=== PATIENT | female | born 1940 | race Two or more races ===

== ENCOUNTER 2025-08-08 15:30 | Inpatient (IN) | payer MEDICAID, MEDICARE, OTHER ==
[~2025-08-08] VITALS: Ht 157.5 cm; Wt 76.5 kg
[2025-08-08] VITALS (27 sets, daily range): BP systolic 93–133; BP diastolic 29–53; PULSE 56–100; RESP 11–22; TEMP 97.5–97.7; O2SAT 93–99
--- NOTE | 2025-08-08 15:36 | DVHINCON2 ---
Date Seen: Aug 08, 2025 Referring Physician MD Roslyn Reason for Consultation STEMI History of Present Illness This is an 85-year-old female who presented to the emergency room via EMS with a chief complaint of chest pain since 15 minutes prior to calling 911. Describes her chest pain as retrosternal, radiating to the right upper extremity, pressure/tightness like, and associated with tremors. The patient was medicated at home with NTG SL 0.4 mg x 2 prior to EMS arrival. EN route to the hospital she was medicated with ASA 325 mg p.o. x1 and IVF x 100 mLs. She underwent a 12 lead electrocardiogram revealing an inferoposterior acute myocardial infarction for which code STEMI was activated. Blood work is pending at this time. Significant medical history includes coronary artery disease status post PCI with stent placement in 2023 with current dual antiplatelet therapy with Plavix and high-intensity statin, history of cerebrovascular accidents x2 without deficits, hypertension, dyslipidemia, svw-xypxwsx-fuiyrqcqd diabetes mellitus, and iron deficiency anemia. Past Medical History Past medical history reviewed. No other significant than mentioned above. Past Surgical History PCI with a stent placement of unknown vessel, 2023 Family History Family history reviewed. Social History Denies the use of illicit drugs, alcohol, or tobacco use. Allergies: Coded Allergies: Morphine (Unverified Allergy, Unknown, 08/08/25) Home Meds Home medications reviewed. Review of Systems Constitutional: No symptom reported Ears, Nose, & Throat: No symptom reported Eyes: No symptom reported Neurological: No symptoms reported Pulmonary/Respiratory: No symptom reported Cardiovascular: Chest pain Gastrointestinal: No symptom reported Genitourinary: No symptom reported Musculoskeletal: No symptom reported Skin: No symptom reported Psychiatric: No symptom reported Endocrine: No symptom reported Hemotologic/Lymphatic: No symptom reported Physical Exam General Appearance: Cooperative. Moderate to severe acute distress Head Exam: Normal inspection Neck Exam: Normal inspection. Non-tender. Normal alignment Pulmonary/Respiratory: Chest non-tender. Clear bilateral breath sounds Cardiovascular/Chest: Regular rate and rhythm. S1, S2. Sinus rhythm with ST- elevation to inferoposterior leads. No murmurs. No JVD. Peripheral Pulses: 2+ Radial (R). 2+ Radial (L). 2+ Pedal (R). 2+ Pedal (L) Abdominal Exam: Normal bowel sounds. Ankle Exam: Negative ankle edema Lower extremities: Negative lower extremity edema Neuro/Mental Status: A&O x4. Coherent Thoughts/Psych: Normal thought pattern. Anxious Appearance: Sjttbhmg-al-kxhcrw acute distress Skin Exam: Normal inspection. Pale color. Warm. Dry Assessment ST-elevation myocardial infarction Acute inferoposterior myocardial infarction Rule out structural heart disease Hypertension Dyslipidemia Hx of CVAs x2 Tzb-fgayncu-gyytkekxm diabetes mellitus Iron deficiency anemia Plan/Recommendation (Dr. Garcia) Code STEMI activated. The patient has been scheduled for emergent cardiac catheterization and coronary angiogram at first available. All risks and benefits of the procedure were discussed with the patient who agrees to proceed with intervention. All questions answered. Patient unable to sign consents secondary to tremors. There was no family at bedside or in lobby area at time of assessment. Consents has been signed by two providers. The patient has been loaded on ASA 325 mg p.o. Heparin bolus held per Dr. Garcia's request. Blood work pending at this time. We will continue further cardiac evaluation with a transthoracic echocardiogram to rule out structural heart disease. Further orders per clinical course. Thank you for allowing us to participate in this patient's care. Please call if you have any questions or concerns. Critical care time: 30 min. This medical document was created using an electronic medical record system with voice recognition software and computerized dictation system. Although this document has been carefully reviewed, there might still be some phonetic and typographical errors. Occas ional wrong-word or ``sound-alike substitutions may have occurred due to the inherent limitations of voice recognition software. These areas are purely typographical due to imperfections of the software programs and do not reflect any compromise in the patient's medical care. Please read the chart carefully and recognize, using context, where these substitutions have occurred. Plan discussed with: Patient, Other NYHA Physical activity limitations: NA Date of Service: Aug 08, 2025 Billing Provider: JAMI SMITH Cardiology Common Codes: [id number] CARE 30-74 MIN JAMI SMITH Aug 08, 2025 15:36
[2025-08-08] MEDS: HEPARIN IN NS 1000Units/500mL 1,500 ML ONE (15:38)
[2025-08-08] MEDS: VERAPAMIL 2.5MG/ML INJ 2ML VIAL IV ONE (15:40)
[2025-08-08] MEDS: ANGIOMAX 250 MG VIAL IV ONE (15:40)
[2025-08-08] MEDS: fentaNYL CITRATE 100 MCG/2 ML VL ONE (15:40)
[2025-08-08] MEDS: MIDAZOLAM HCL 2MG/2ML 2ml VIAL (1mg/ml) ONE (15:41)
[2025-08-08] MEDS: LIDOCAINE 2%HCL (LOCAL ANESTH.) INJ 20ML MDV ONE (15:41)
[2025-08-08] MEDS: SODIUM CHL 0.9% 50 ML ONE (15:41)
[2025-08-08] MEDS ORDERED: MORPHINE SULFATE INJ 2 MG/ml SYRG IV ONE (15:45)
[2025-08-08] MEDS ORDERED: ONDANSETRON HCL 4 MG/2 ML VIAL IV ONE (15:45)
--- NOTE | 2025-08-08 15:45 | ED.PDOC ---
History of Present Illness HPI Comments This is an 85-year-old female who comes in with chief complaint of chest pain starting approximately 15 minutes prior to arrival. The patient was at home when the chest pain started. The pain is pressure-like and radiates towards the back. The patient also states that the pain radiated towards the right arm. There has been no nausea, vomiting or diarrhea. There has been no fever or chills. 911 was called and the patient was transported to our facility. EN route, the patient's pain was a 10/10. The patient was given aspirin p.o.. The patient also took nitroglycerin x2 prior to arrival at home. The patient was somewhat hypotensive so was given normal saline at a 500 cc bolus. EN route, the patient had an oxygen saturation of 96% but was placed on oxygen at 2 L nasal cannula. Upon arrival, the patient had an EKG already done in the field which indicated that it was a STEMI. An EKG was repeated upon arrival and we confirmed that has a STEMI. The patient was being evaluated by Seema Robertson NP immediately upon arrival. We did send the EKG to Dr. Garcia and was also confirmed. Time Seen by MD: 15:33 Reviewed Notes: Nurses Notes, General Office Clerk Notes, Medications, Allergies (Allergies to morphine) Allergies: Coded Allergies: Morphine (Unverified Allergy, Unknown, 08/08/25) Information Source: Patient, Emergency Med Personnel Mode of Arrival: EMS Severity: Severe Timing: Minutes Duration: Since onset Prehospital treatment: 12 Lead EKG, ASA, Certified Recreational Therapist, IVF, NTG, Oxygen Location: Substernal chest pain that radiates to the right arm and to the back Associated signs and symptoms Associated mild shortness for breath but no nausea or vomiting Past Medical History PAST MEDICAL HISTORY: CVA, DM, HTN, CO Surgical History: Appendectomy, Hysterectomy, PTCA [employer]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 History: No Pertinent OR[employer]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 History Family History Family History: Reviewed,noncontributory to illness Social History Smoker: Non-Smoker Alcohol: Denies ETOH Use Drugs: Denies Drug Use Lives In: Home Constitutional: denies: chills, diaphoresis, fatigue, fever, malaise, sweats, weakness, others EENTM: denies: blurred vision, double vision, ear bleeding, ear discharge, ear drainage, ear pain, ear ringing, eye pain, eye redness, hearing loss, mouth pain, mouth swelling, nasal discharge, nose bleeding, nose congestion, nose pain, photophobia, tearing, throat pain, throat swelling, voice changes, others Respiratory: reports: shortness of breath; denies: cough, hemoptysis, orthopnea, SOB at rest, SOB with excertion, stridor, wheezing, others Cardiovascular: reports: chest pain; denies: dizzy spells, diaphoresis, Dyspnea on exertion, edema, irregular heart beat, left arm pain, lightheadedness, palpitations, PND, syncope, others Gastrointestinal: denies: abdomen distended, abdominal pain, blood streaked bowels, constipated, diarrhea, dysphagia, difficulty swallowing, hematemesis, melena, nausea, poor appetite, poor fluid intake, rectal bleeding, rectal pain, vomiting, others Genitourinary: denies: abnormal vagina bleeding, burning, dyspareunia, dysuria, flank pain, frequency, hematuria, incontinence, pain, , vagina disch arge, urgency, others Neurological: denies: dizziness, fainting, headache, left sided numbness, left sided weakness, numbness, paresthesia, pre-existing deficit, right sided numbness, right sided weakness, seizure, speech problems, tingling, tremors, weakness, others Musculoskeletal: denies: back pain, gout, joint pain, joint swelling, muscle pain, muscle stiffness, neck pain, others Integumetry: denies: bruises, change in color, change in hair/nails, dryness, laceration, lesions, lumps, rash, wounds, others Allergic/Immunocompromised: denies: Difficulty Healing, Frequent Infections, Hives, Itching, others Hematologic/Lymphatic: denies: anemia, blood clots, easy bleeding, easy bruising, swollen glands, others Endocrine: denies: excessive hunger, excessive sweating, excessive thirst, excessive urination, flushing, intolerance to cold, intolerance to heat, unexplained weight gain, unexplained weight loss, others Psychiatric: denies: anxiety, bipolar disorder, depression, hopeless, panic disorder, schizophrenia, sleepless, suicidal, others Physical Exam General Appearance: Severe Distress HEENT: Pale Conjuntivae (L), Pale Conjuntivae (R), Pharynx Normal, TMs Normal Neck: Full Range of Motion, Non-Tender, Normal, Normal Inspection Respiratory: Chest Non-Tender, Lungs Clear, No Accessory Muscle Use, No Respiratory Distress, Normal Breath Sounds Cardiovascular: No Edema, No JVD, No Murmur, No Gallop, Normal Peripheral Pulses, Regular Rate/Rhythm Breast Exam: Deferred Gastrointestinal: No Organomegaly, Non Tender, No Pulsatile Mass, Normal Bowel Sounds, Soft Genitalia: Deferred Pelvic: Deferred Rectal: Deferred Extremities: No calf tenderness, Normal capillary refill, No pedal edema Musculoskeletal : Apperance: Normal Neurologic: Alert, call or contact centre team leader II-XII nml as Tested, Motor Weakness, Normal Affect, Normal Mood, No Sensory Deficits Cerebellar Function: Normal Reflexes: Normal Skin: Dry, Normal Color, Warm Lymphatic: No Adenopathy Was a procedure done? Was a procedure done?: No EKG EKG : Pulse Rate (adult): 63 [place]: Normal Cardiac Rhythm: NSR ST: Nonsp (ST-elevation in the inferior and anterior leads) Differential Dx Considerations may include: ACS, CO, generalized weakness X-Ray, Labs, Meds, VS IV Hep-Lock was established The patient is allergic to morphine so we did not give any pain medication. We did speak with the pond tender and he does not want any heparin given at this time. Images Reviewed?: Images reviewed and evaluated by me Time of 1ST Reevaluation: 15:44 Reevaluation 1ST: Unchanged Patient Education/Counseling: Diagnosis, Treatment, Prognosis Family Education/Counseling: No Family Present SEPSIS Sepsis Screen Physician Orders Complete Blood Count (08/08/25 15:33) Comprehensive Metabolic Panel (08/08/25 15:33) PTPTT (08/08/25 15:33) Magnesium (08/08/25 15:33) Chest Portable (08/08/25 15:33) Certified Recreational Therapist (08/08/25 15:33) Blood Pressure (08/08/25 15:33) Pulse Oximetry (08/08/25 15:33) Heplock Iv (08/08/25 15:33) Heplock Iv (08/08/25 15:33) Oxygen Per Hour (08/08/25 15:33) Troponin-I Hs (08/08/25 15:33) Electrocardigram (08/08/25 15:33) Troponin-I Hs (08/08/25 16:33) Troponin-I Hs (08/08/25 18:33) Electrocardigram (08/08/25 16:33) Electrocardigram (08/08/25 18:33) Morphine Sulfate Injection (08/08/25 15:45) Ondansetron Hcl (Zofran) (08/08/25 15:45) Departure 1 Departure Time of Disposition: 15:44 Impression: Primary Impression: STEMI (ST elevation myocardial infarction) Qualified Codes: I21.3 - ST elevation (STEMI) myocardial infarction of unspecified site Disposition: 09 ADMITTED INPATIENT Admit to: ICU Condition: Fair Critical Care Note Critical Care Time?: Yes (45 min-critical care time only) Stability Stability form required: Yes Unstable for transfer: ICU, CCU, PCU, JAYDEN (Intensive VS monitoring), ED Physician Assesment (Clinical assesment) Heart Score Heart Score: Heart Score Response (Comments) Value History Highly Suspicious [address]-Deviation 2 Age >65 2 Risk Factors >3 or Hx ASHD 2 Troponin N/A 0 Total 8 LILLIAM CATALAN MD Aug 08, 2025 15:45
[2025-08-08 15:48] LABS: Hematocrit 33.3 % (36.0-46.0); Hemoglobin 10.3 g/dL (12.2-16.2); Mean Corpuscular Hemoglobin 22.1 pg (28.0-32.0); Mean Corpuscular Volume 71.5 fL (80.0-100.0); Nucleated Red Blood Cells % 0.1 %
[2025-08-08] MEDS: ATROPINE SULF 1 MG/10ml SYR ONE ×2 (15:50→16:37)
[2025-08-08] MEDS ORDERED: MORPHINE SULFATE INJ 2 MG/ml SYRG IV PRN (16:00)
[2025-08-08] MEDS ORDERED: NITROGLYCERIN 0.4 MG SL TAB SL PRN (16:00)
--- NOTE | 2025-08-08 16:02 | DVH ---
CHEST RADIOGRAPH Indication: cp Technique: Single frontal view of the chest was obtained Comparison: None FINDINGS: Lines and Tubes: None Lungs: No focal consolidation. Bronchovascular crowding due to low lung volumes. Pleura: No effusion. No pneumothorax. Cardiomediastinal contours: Unremarkable Bones: No acute osseous abnormality. IMPRESSION: No acute cardiopulmonary disease.
[2025-08-08] MEDS: HEPARIN SODIUM (PORCINE) 5000 UNITS/ML 1ML VIAL ONE (16:04)
[2025-08-08 16:06] LABS: INR 0.97 (0.9-1.15); Partial Thromboplastin Time 23.8 SEC (24.5-34.5); Prothrombin Time 10.3 sec (9.3-11.8)
[2025-08-08 16:09] LABS: Alanine Aminotransferase 13 U/L (7-40); Albumin 4.1 g/dL (3.2-4.8); Alkaline Phosphatase 64 U/L (46-116); Anion Gap 14 (5-15); BUN/Creatinine Ratio 26.3 (10.0-20.0); Calcium 9.2 mg/dL (8.7-10.4); Carbon Dioxide 22 mmol/L (20-31); Magnesium 2.0 mg/dL (1.6-2.6); Potassium 3.8 mmol/L (3.5-5.1); Sodium 144 mmol/L (136-145); Total Protein 6.5 g/dL (5.7-8.2)
[2025-08-08 16:12] LABS: Bilirubin, Total 0.3 mg/dL (0.2-1.0); Blood Urea Nitrogen 26 mg/dL (9-23); Chloride 108 mmol/L (98-107); Glucose 134 mg/dL (74-106)
[2025-08-08] MEDS ORDERED: ACETAMINOPHEN 325 MG TAB PO PRN (16:15)
[2025-08-08] MEDS ORDERED: DEXTROSE (50%) 50ML SYRG IV PRN (16:15)
--- NOTE | 2025-08-08 16:18 | DVHHP2 ---
History of Present Illness Reason for Visit: Chest pain History of Present Illness 85-year-old female presents for evaluation of chest pain. Patient presents with a one day history of pressure-like chest pain that radiates to her back with associated shortness for breath. No cough or fever. No nausea or vomiting. Patient was also hypotensive on arrival to the emergency department. Past Medical History Hypertension, mi, diabetes mellitus, CVA Past Surgical History hysterectomy, PTCA, appendectomy Family History Noncontributory Smoke: No ALCOHOL: none Drugs: None Lives: with Family Review of Systems Review of Systems Review of systems are currently negative otherwise addressed in HPI. Allergies: Coded Allergies: Morphine (Unverified Allergy, Unknown, 08/08/25) Medications Current Medications Medications Dose Ordered Sig/Acacia Route Start Time Stop Time Status Last Admin Dose Admin Aspirin 81 mg DAILY PO 08/09/25 10:00 Clopidogrel Bisulfate 75 mg DAILY PO 08/09/25 10:00 Atorvastatin Calcium 80 mg HS PO 08/08/25 22:00 Nitroglycerin 0.4 mg Q5MINP PRN SL 08/08/25 16:00 Morphine Sulfate 2 mg Q30M PRN IV 08/08/25 16:00 UNV Exam Vital Signs Vital Signs Date Time Temp Pulse Resp B/P (MAP) Pulse Ox O2 Delivery O2 Flow Rate FiO2 08/08/25 15:45 63 08/08/25 15:37 97.7 30 90/53 97 97.7 Exam Gen: 85-year-old female in mild distress. Skin: Warm, dry, normal color and texture, no rash. HEENT: Normocephalic atraumatic, mucous membranes moist and pink. Neck: Cervical and supraclavicular nodes normal without enlargement, trachea is midline, thyroid gland is normal without masses. Pulmonary: Clear to auscultation and percussion bilaterally. Cardiac: Regular rate and rhythm. No murmur Abdomen: Soft, nontender, nondistended, bowel sounds present all 4 quadrants, no guarding, no rigidity, no organomegaly. Extremities: No cyanosis, clubbing, no edema Neuro: Cranial nerves II through XII grossly intact, normal affect and speech, no focal motor deficits. Labs/Xrays Labs Test 08/08/25 15:31 Range/Units White Blood Count 9.8 4.4-10.8 10^3/uL Red Blood Count 4.66 4.0-5.20 10^6/uL Hemoglobin 10.3 L 12.2-16.2 g/dL Hematocrit 33.3 L 36.0-46.0 % Mean Corpuscular Volume 71.5 L 80.0-100.0 fL Mean Corpuscular Hemoglobin 22.1 L 28.0-32.0 pg Mean Corpuscular Hemoglobin Concent 30.9 L 32.0-36.0 g/dL Red Cell Distribution Width 14.8 H 11.8-14.3 % Platelet Count 308 140-450 10^3/uL Mean Platelet Volume 6.7 L 6.9-10.8 fL Neutrophils (%) (Auto) 41.0 37.0-80.0 % Lymphocytes (%) (Auto) 47.4 10.0-50.0 % Monocytes (%) (Auto) 7.8 0.0-12.0 % Eosinophils (%) (Auto) 3.0 0.0-7.0 % Basophils (%) (Auto) 0.8 0.0-2.0 % Neutrophils # (Auto) 4.0 1.6-8.6 10 ^3/uL Lymphocytes # (Auto) 4.7 0.4-5.4 10 ^3/uL Monocytes # (Auto) 0.8 0-1.3 10 ^3/uL Eosinophils # (Auto) 0.3 0-0.8 10 ^3/uL Basophils # (Auto) 0.1 0-0.2 10 ^3/uL Nucleated Red Blood Cells 0.1 % Prothrombin Time 10.3 9.3-11.8 sec Prothrombin Time INR 0.97 0.9-1.15 Activated Partial Thromboplast Time 23.8 L 24.5-34.5 SEC Sodium Level 144 136-145 mmol/L Potassium Level 3.8 3.5-5.1 mmol/L Chloride Level 108 H 98-107 mmol/L Carbon Dioxide Level 22 20-31 mmol/L Anion Gap 14 5-15 Blood Urea Nitrogen 26 H 9-23 mg/dL Creatinine 0.99 0.550-1.02 mg/dL Glomerular Filtration Rate Calc 56 >90 mL/min BUN/Creatinine Ratio 26.3 H 10.0-20.0 Serum Glucose 134 H 74-106 mg/dL Calcium Level 9.2 8.7-10.4 mg/dL Magnesium Level 2.0 1.6-2.6 mg/dL Total Bilirubin 0.3 0.2-1.0 mg/dL Aspartate Amino Transferase (AST) 15 13-40 U/L Alanine Aminotransferase (ALT) 13 7-40 U/L Alkaline Phosphatase 64 46-116 U/L Troponin I High Sensitivity 10 </=34 ng/L Total Protein 6.5 5.7-8.2 g/dL Albumin 4.1 3.2-4.8 g/dL SEPSIS Sepsis Screen Date sepsis recognized/suspect: Aug 08, 2025 Time Sepsis recognized/suspect: 1537 Recent Procedure: No On Antibiotic Therapy: No Respiratory Rate >20: No Heart Rate >90: No Temp<36 C (96.8 F) or >38.3 C: No SBP <90 or MAP <65 mmHG: No New Acute Mental Status Change: No Is the patient on CPAP, BIPAP,: No Physician Orders Chest Portable (08/08/25 15:33) Staff Consultant (08/08/25 15:33) Blood Pressure (08/08/25:33) Pulse Oximetry (08/08/25 15:33) Heplock Iv (08/08/25 15:33) Heplock Iv (08/08/25 15:33) Oxygen Per Hour (08/08/25 15:33) Electrocardigram (08/08/25 15:33) Troponin-I Hs (08/08/25 16:33) Troponin-I Hs (08/08/25 18:33) Electrocardigram (08/08/25 16:33) Electrocardigram (08/08/25 18:33) Npo Except For Medications (08/09/25 00:01) Obtain Consent For: (08/08/25 15:36) Hold Enoxaparin Day Of Procedu (08/09/25 00:01) D/C Tlc (08/08/25:36) Shave Both Groins (08/08/25:) Provide Education Materials (08/08/25 15:36) Cl Left Heart Cath (08/08/25 15:36) Comprehensive Metabolic Panel (08/10/25 04:00) Obtain Consent For Anesthesia (08/08/25 15:36) Cl Left Heart Cath (08/08/25 15:38) Hemoglobin A1c (08/08/25 15:49) Lipid Panel (08/08/25 15:49) B-Type Natriuretic Peptide (08/08/25 15:49) Thyroid Stimulating Hormone (08/08/25 15:49) Echo 2d Mode Cardiac Dop (08/08/25 15:49) Urinalysis (08/08/25 15:49) Aspirin Tablet (08/09/25 10:00) Clopidogrel Bisulfate (Plavix) (08/09/25 10:00) Atorvastatin (Lipitor) (08/08/25 22:00) Admit (08/08/25 15:55) Nitroglycerin Sublingual (Ntrostat Subli (08/08/25 16:00) Morphine Sulfate Injection (08/08/25 16:00) Stat Ekg For Chest Pain (08/08/25 15:55) Notify Md Of Changes From Base (08/08/25 15:55) Order Detailer For 24 Hours (08/08/25 15:55) Emergency Dysrhythmia Protocol (08/08/25 15:55) Rhythm Strips Once Every Shift (08/08/25 15:55) Oxygen By Nasal Cannula (08/08/25 15:55) Consistent Carb(Ccho)Diabetes (08/08/25 Dinner) Vital Signs Date Time Temp Pulse Resp B/P (MAP) Pulse Ox O2 Delivery O2 Flow Rate FiO2 08/08/25 15:45 63 08/08/25 15:37 97.7 64 30 90/53 97 97.7 08/08/25 15:31 63 Laboratory Tests Test 08/08/25 15:31 White Blood Count 9.8 10^3/uL (4.4-10.8) Assessment/Plan Assessment/Plan Assessment STEMI Diabetes mellitus Hypotension Plan Admit the patient to ICU to the hospitalist Patient undergoing heart catheterization Resume home medications Continue treatment per orders. Total critical care time excluding procedures performed this 50 minutes. Plan discussed with: Patient My Orders Orders - CAR MIRANDA Procedure Category Date Status Time Admit ADMIT 08/08/25 Transmitted 15:55 Nitroglycerin PHA 08/08/25 Logged Sublingual (Ntrostat 16:00 Morphine Sulfate PHA 08/08/25 Logged Injection 16:00 Stat Ekg For Chest DOLLY 08/08/25 In Process Pain 15:55 Notify Md Of Changes [facility] 08/08/25 In Process From Base 15:55 Order Detailer For [facility] 08/08/25 In Process 24 Hours 15:55 Emergency Dysrhythmia [facility] 08/08/25 In Process Protocol 15:55 Rhythm Strips Once [facility] 08/08/25 In Process Every Shift 15:55 Oxygen By Nasal RT 08/08/25 Transmitted Cannula 15:55 Consistent DIET 08/08/25 [facility]ified [facility]Diabetes Dinner Date of Service: Aug 08, 2025 Billing Provider: CAR MIRANDA Common Visit Codes: [id number] CARE 30-74 MIN CAR MIRANDA Aug 08, 2025 16:18
[2025-08-08] MEDS: NOREPINEPHRINE 8 MG/250ML KIT 0 ML IV ONE (16:22)
[2025-08-08 16:29] LABS: Triglycerides 135 mg/dL (< 150)
[2025-08-08] MEDS: NOREPINEPHRINE 8 MG/250ML KIT 250 ML IV SCH (16:30)
[2025-08-08 16:31] LABS: Cholesterol 125 mg/dL (< 200); HDL Cholesterol 44 mg/dL (40-59)
[2025-08-08] MEDS ORDERED: ATROPINE SULF 1 MG/10ml SYR IV PRN (16:45)
[2025-08-08] MEDS: IODIXANOL 320MG/ML 100ML BTL IV ONE (16:47)
[2025-08-08] MEDS: CLOPIDOGREL BISULFATE 75 MG TAB ONE (17:03)
--- NOTE | 2025-08-08 17:30 | DVHOP2 ---
Operative Report - 2 Report Details Date: 08/08/25 Preop Diagnosis: Acute ST-elevation myocardial infarction Postop Diagnosis: Successful aperture/PTCA and stenting of RCA Surgeon: Ashlyn Garcia MD Anesthesiologist: Conscious sedation Anesthesia: Mac, Local Consent: The patient was informed of the risks and benefits of the procedure. These include but are not limited to complications of anesthesia, postoperative infection, incomplete relief of symptoms, recurrence of symptoms, damage to blood vessels, nerves and tendons, deep venous thrombosis, pulmonary embolism and possible need for repeat surgery in the future. Complications: No complications Findings: Occluded RCA. Ostial left main Indications for Surgery: Acute ST-elevation myocardial infarction Name of Procedure Performed Left heart catheterization. Bilateral cine coronary angiography. Left ventriculography. PTCA and stenting of RCA. Procedure Details Procedure Details: Prior local anesthesia with 2% lidocaine to the right wrist and full informed consent obtained patient was prepped and draped in usual fashion. With ultraso und guidance and fluoroscopic guidance we gained access into the radial artery is rather small. We then obtained access into the ulnar artery placed a six [place] slim catheter through which a 3-0 EBU guide was used to perform ventriculography and cannulation of both right and left coronary ostium PTCA and stenting of the RCA without complications Hemodynamics: Aortic blood pressure was 90/50. End-diastolic pressure was 18. There was no gradient across the aortic valve on pullback. Coronary anatomy: The RCA is 100% occluded at its proximal to mid section. The left main has an ostial 75-80% stenosis. There is mild plaquing left anterior descending coronary artery without critical lesions. Septals and diagonals are free of significant disease. The circumflex is a large vessel it is obtuse marginals free of significant disease. Ventriculography in the MENESES projection shows an EF of 60% with inferior basal hypokinesis. Angioplasty was performed for which a 3-0 EBU guide was used with a Specter wire across the area of stenosis pre dilatation with a two 5 x 10 euphoria balloon followed by stenting with a 3-0 by 18 mm stent at a proximally 18 atmospheres. We then noticed the PDA in the posterolateral branches were normal. There was excellent antegrade flow. No thrombus formation and/or dissection noted. Impression: Successful PTCA and stenting of the RCA. The associated left main disease as mentioned. High end-diastolic pressure. Normal left ventricular ejection fraction Recommendations: A staged procedure will performed left main after patient recovers from stunned myocardium of the RCA. Risk factor modification to continue. Condition Fair Disposition Still a Patient Date of Service: Aug 08, 2025 Billing Provider: ASHLYN GARCIA Sr., MD Cardiology Common Codes: [id number] INP/OBS CARE (High) Cardiology Procedure Codes: 67049 -PTCA W/STENT PLACEMENT, 36086-BRDM FOR STEMI W/STENT, 56389-SBWV HEART CATH W/INTRA INJ ASHLYN GARCIA Sr., MD Aug 08, 2025 17:30
[2025-08-08] MEDS: ONDANSETRON HCL 4 MG/2 ML VIAL IV PRN (18:05)
[2025-08-08] MEDS: ACCU-CHEK COMFORT CURVE STRIP VI SCH (18:14)
[2025-08-08] MEDS: InsuLIN REG 1unit/0.01ml Soln (100units/ml) SC SCH (18:17)
[2025-08-08] MEDS: ATORVASTATIN 20 MG TAB PO SCH (22:12)
[2025-08-09] VITALS (45 sets, daily range): BP systolic 90–119; BP diastolic 27–88; PULSE 57–94; RESP 13–23; TEMP 98.2–99; O2SAT 90–100
[2025-08-09] MEDS: HYDROcodone-ACET 5/325MG TAB PO PRN (02:02)
[2025-08-09 04:07] LABS: Hemoglobin 10.3 g/dL (12.2-16.2)
[2025-08-09 04:10] LABS: Hematocrit 32.0 % (36.0-46.0); Mean Corpuscular Hemoglobin 22.9 pg (28.0-32.0); Mean Corpuscular Volume 71.5 fL (80.0-100.0); Nucleated Red Blood Cells % 0.3 %
[2025-08-09 04:12] LABS: Anion Gap 9 (5-15); Calcium 9.5 mg/dL (8.7-10.4); Carbon Dioxide 26 mmol/L (20-31); Potassium 4.7 mmol/L (3.5-5.1); Sodium 144 mmol/L (136-145)
[2025-08-09 04:18] LABS: BUN/Creatinine Ratio 20.0 (10.0-20.0); Blood Urea Nitrogen 17 mg/dL (9-23)
[2025-08-09 04:19] LABS: Chloride 109 mmol/L (98-107); Glucose 113 mg/dL (74-106)
[2025-08-09] MEDS: CLOPIDOGREL BISULFATE 75 MG TAB PO SCH (09:44)
--- NOTE | 2025-08-09 10:56 | DVHPN2 ---
Progress Note - Dictate Date Seen: Aug 09, 2025 Has the PT tested + for MRSA If YES, has PT been informed?: No Medical Necessity Reason Pt with a Central, PICC or Fol: No vital signs Vital Sign Date Time Temp Pulse Resp B/P (MAP) Pulse Ox O2 Delivery O2 Flow Rate FiO2 08/09/25 10:00 70 08/09/25 09:30 20 108/50 (69) 95 08/09/25 08:00 Nasal Cannula* 2 28 08/09/25 08:00 98.2 98.2 Total Intake and Output 08/08/25 08/08/25 08/09/25 15:00 23:00 07:00 Intake Total 486 ml Output Total 0 ml Balance 0 ml 486 ml medications Current Medications Medications Dose Ordered Sig/Acacia Route Start Time Stop Time Status Last Admin Dose Admin Aspirin 81 mg DAILY PO 08/09/25 10:00 08/09/25 09:44 81 MG Clopidogrel Bisulfate 75 mg DAILY PO 08/09/25 10:00 08/09/25 09:44 75 MG Atorvastatin Calcium 80 mg HS PO 08/08/25 22:00 08/08/25 22:12 80 MG Nitroglycerin 0.4 mg Q5MINP PRN SL 08/08/25 16:00 Morphine Sulfate 2 mg Q30M PRN IV 08/08/25 16:00 Hold Diagnostic Test (Pha) 1 strip ACHS 08/08/25 17:00 08/09/25 06:59 1 STRIP Insulin Human Regular ACHS SC 08/08/25 17:00 08/09/25 06:58 2 UNITS Dextrose 50 ml UD PRN IV 08/08/25 16:15 Acetaminophen/ Hydrocodone Bitart 1 tab Q4HP PRN PO 08/08/25 16:15 08/09/25 02:02 1 TAB Ondansetron HCl 4 mg Q4HP PRN IV 08/08/25 16:15 08/08/25 18:05 4 MG Acetaminophen 650 mg Q6HP PRN PO 08/08/25 16:15 Norepinephrine Bitartrate 250 ml @ 3.75 mls/hr Q24H IV 08/08/25 16:30 Atropine Sulfate 1 mg Q5MINP PRN IV 08/08/25 16:45 laboratory and microbiology Laboratory Tests 08/09/25 03:28 Test 08/09/25 03:28 Range/Units Serum Glucose 113 H 74-106 mg/dL Assessment/Plan 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
--- NOTE | 2025-08-09 11:43 | DVHPN2 ---
Consult Progress Note Date Seen: Aug 09, 2025 Subjective Review of Systems: CVS:Normal, RESPIRATORY:Normal, NEURO:Normal Other Systems: Denies any cardiac symptoms, daughter at bedside Objective vital signs Vital Sign Date Time Temp Pulse Resp B/P (MAP) Pulse Ox O2 Delivery O2 Flow Rate FiO2 08/09/25 10:00 70 08/09/25 09:30 20 108/50 (69) 95 08/09/25 08:00 Nasal Cannula* 2 28 08/09/25 08:00 98.2 98.2 Total Intake and Output 08/08/25 08/08/25 08/09/25 15:00 23:00 07:00 Intake Total 486 ml Output Total 0 ml Balance 0 ml 486 ml medications Current Medications Medications Dose Ordered Sig/Acacia Route Start Time Stop Time Status Last Admin Dose Admin Aspirin 81 mg DAILY PO 08/09/25 10:00 08/09/25 09:44 81 MG Clopidogrel Bisulfate 75 mg DAILY PO 08/09/25 10:00 08/09/25 09:44 75 MG Atorvastatin Calcium 80 mg HS PO 08/08/25 22:00 08/08/25 22:12 80 MG Nitroglycerin 0.4 mg Q5MINP PRN SL 08/08/25 16:00 Morphine Sulfate 2 mg Q30M PRN IV 08/08/25 16:00 Hold Diagnostic Test (Pha) 1 strip ACHS 08/08/25 17:00 08/09/25 06:59 1 STRIP Insulin Human Regular ACHS SC 08/08/25 17:00 08/09/25 06:58 2 UNITS Dextrose 50 ml UD PRN IV 08/08/25 16:15 Acetaminophen/ Hydrocodone Bitart 1 tab Q4HP PRN PO 08/08/25 16:15 08/09/25 02:02 1 TAB Ondansetron HCl 4 mg Q4HP PRN IV 08/08/25 16:15 08/08/25 18:05 4 MG Acetaminophen 650 mg Q6HP PRN PO 08/08/25 16:15 Norepinephrine Bitartrate 250 ml @ 3.75 mls/hr Q24H IV 08/08/25 16:30 Atropine Sulfate 1 mg Q5MINP PRN IV 08/08/25 16:45 Examination: LUNGS:Normal, CVS:Normal, NEURO:Normal laboratory and microbiology Laboratory Tests 08/09/25 03:28 Test 08/09/25 03:28 Range/Units Serum Glucose 113 H 74-106 mg/dL Problem List/Assessment/Plan Problem List/Assessment/Plan 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 The left main has an ostial lesion of 75-80%. Successful PTCA and stenting of the RCA x 1DES (see full dictated report) * 12-lead electrocardiogram on 08/08/[address]-elevation to inferoposterior leads * Transthoracic echocardiogram pending at this time * Baseline troponin level 10 ng/L. BNP 116 Plan/Recommendation (Dr. Garcia) The patient with an acute inferoposterior myocardial infarction underwent a successful PTCA and stenting of the RCA x 1 ROJAS (culprit lesion). The left main has an ostial lesion of 75-80% for which a staged procedure has been recommended. All risks and benefits of this procedure were discussed in full detail with the patient and daughter at bedside. They would like to discuss with more family members before making an informed decision. In the meantime, continue dual-antiplatelet therapy, high-intensity statin, and initiate DVT/VTE prophylaxis. Beta-sarah held secondary to bradycardia. We will continue further cardiac evaluation with a transthoracic echocardiogram to rule out structural heart disease. Obtain surgical records from [facility] in regards of coronary angiogram from 11/2024. Further orders per clinical course. Thank you for allowing us to participate in this patient's care. Please call if you have any questions or concerns. Critical care time: 30 min. This medical document was created using an electronic medical record system with voice recognition software and computerized dictation system. Although this document has been carefully reviewed, there might still be some phonetic and typographical errors. Occasional wrong-word or ``sound-alike substitutions may have occurred due to the inherent limitations of voice recognition software. These areas are purely typographical due to imperfections of the software programs and do not reflect any compromise in the patient's medical care. Please read the chart carefully and recognize, using context, where these substitutions have occurred. Plan discussed with: Patient, Daughter, Other Date of Service: Aug 09, 2025 Billing Provider: JAMI SMITH Cardiology Common Codes: [id number] CARE 30-74 MIN JAMI SMITH Aug 09, 2025 11:43
[2025-08-09] MEDS: ENOXAPARIN SOD 30 MG/0.3 ML SYRINGE SC ONE (11:45)
--- NOTE | 2025-08-09 15:26 | DVHSR ---
APPROVED REPORT EXAM: Two-dimensional and M-mode echocardiogram with Doppler and color Doppler. Blood Pressure: 106/43 mmHg INDICATION STEMI RISK FACTORS Height: 5'2", Weight: 140 DIMENSIONS LVDd 4.7 (3.8-5.7cm) LA (2D) 4.4 (1.9-4.0cm) Aortic Root 2.8 (2.0-3.7cm) LVDs 2.6 (2.5-4.0cm) LA (MM) (1.9-4.0cm) Aortic Cusp Exc 1.3 (1.5-2.0cm) EF (%) 74.0 (55-70%) Rt. Atrium 3.5 (1.9-4.0cm) Asc. Aorta 3.0 cm IVSd 0.6 (0.7-1.1cm) RV (D) 3.4 (1.8-2.4cm) PWd 0.8 (0.7-1.1cm) Mitral Valve Mitral Mitral Stenosis E wave 1.20m/s MV Mean GR. mmHg A wave 0.75m/s MV Peak GR. mmHg E/A ratio 1.6 2D MVA cm2 DECEL Time 212ms PRESS 1/2 Time ms Aortic Valve Aortic Valve Aortic Stenosis V1 1.06m/s AO Mean GR. 5mmHg V2 1.43m/s AO Peak GR. 8mmHg LVOT Diameter 1.7 (1.8-2.4cm) Doppler MARICRUZ 1.68cm2 Pulmonic Valve V2 0.96m/s Tricuspid Valve TR Velocity 2.73m/s RVSP 33mmHg Conclusion Sinus rhythm. Left atrial enlargement with aortic root enlargement. Mild mitral annular calcification. Mild aortic sclerosis. Left ventricular function is preserved at 65% with normal RV function. Mild inferior basal hypokinesis. Mild TR. Mild MR. No pericardial effusion masses or vegetations.
[2025-08-10] VITALS (9 sets, daily range): BP systolic 104–123; BP diastolic 52–73; PULSE 74–86; RESP 16–20; TEMP 96.5–99.8; O2SAT 90–96
[2025-08-10 07:15] LABS: Hematocrit 32.8 % (36.0-46.0); Hemoglobin 10.2 g/dL (12.2-16.2); Mean Corpuscular Hemoglobin 22.4 pg (28.0-32.0); Mean Corpuscular Volume 72.0 fL (80.0-100.0); Nucleated Red Blood Cells % 0.2 %
[2025-08-10 07:33] LABS: Alanine Aminotransferase 20 U/L (7-40); Albumin 4.0 g/dL (3.2-4.8); Alkaline Phosphatase 59 U/L (46-116); Anion Gap 8 (5-15); BUN/Creatinine Ratio 14.1 (10.0-20.0); Blood Urea Nitrogen 12 mg/dL (9-23); Calcium 9.4 mg/dL (8.7-10.4); Carbon Dioxide 27 mmol/L (20-31); Chloride 107 mmol/L (98-107); Potassium 4.2 mmol/L (3.5-5.1); Sodium 142 mmol/L (136-145); Total Protein 6.5 g/dL (5.7-8.2)
[2025-08-10 07:34] LABS: Bilirubin, Total 0.6 mg/dL (0.2-1.0)
[2025-08-10 07:35] LABS: Glucose 147 mg/dL (74-106)
[2025-08-10] MEDS: ENOXAPARIN SOD 30 MG/0.3 ML SYRINGE SC SCH (10:14)
--- NOTE | 2025-08-10 12:30 | DVHPN2 ---
Progress Note - Dictate Date Seen: Aug 10, 2025 Medical Necessity Reason Pt with a Central, PICC or Fol: No vital signs Vital Sign Date Time Temp Pulse Resp B/P (MAP) Pulse Ox O2 Delivery O2 Flow Rate FiO2 08/10/25 09:00 98.6 85 20 123/52 (75) 90 98.6 08/10/25 08:20 Nasal Cannula* 1 24 Total Intake and Output 08/09/25 08/09/25 08/10/25 15:00 23:00 07:00 Intake Total 200 ml 120 ml 800 ml Balance 200 ml 120 ml 800 ml medications Current Medications Medications Dose Ordered Sig/Acacia Route Start Time Stop Time Status Last Admin Dose Admin Aspirin 81 mg DAILY PO 08/09/25 10:00 08/10/25 10:13 81 MG Clopidogrel Bisulfate 75 mg DAILY PO 08/09/25 10:00 08/10/25 10:12 75 MG Atorvastatin Calcium 80 mg HS PO 08/08/25 22:00 08/09/25 21:05 80 MG Nitroglycerin 0.4 mg Q5MINP PRN SL 08/08/25 16:00 Morphine Sulfate 2 mg Q30M PRN IV 08/08/25 16:00 Hold Diagnostic Test (Pha) 1 strip ACHS 08/08/25 17:00 08/10/25 11:30 1 STRIP Insulin Human Regular ACHS SC 08/08/25 17:00 08/10/25 12:13 4 UNITS Dextrose 50 ml UD PRN IV 08/08/25 16:15 Acetaminophen/ Hydrocodone Bitart 1 tab Q4HP PRN PO 08/08/25 16:15 08/10/25 10:14 1 TAB Ondansetron HCl 4 mg Q4HP PRN IV 08/08/25 16:15 08/08/25 18:05 4 MG Acetaminophen 650 mg Q6HP PRN PO 08/08/25 16:15 Enoxaparin Sodium 30 mg DAILY SC 08/10/25 10:00 08/10/25 10:14 30 MG laboratory and microbiology Laboratory Tests 08/10/25 06:15 Test 08/10/25 06:15 Range/Units Serum Glucose 147 H 74-106 mg/dL Assessment/Plan 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
[2025-08-11] VITALS (9 sets, daily range): BP systolic 107–124; BP diastolic 49–66; PULSE 72–95; RESP 16–20; TEMP 96.7–98.5; O2SAT 93–98
[2025-08-11 10:30] LABS: Hemoglobin 9.9 g/dL (12.2-16.2); Mean Corpuscular Hemoglobin 23.0 pg (28.0-32.0); Nucleated Red Blood Cells % 0.0 %
[2025-08-11 10:33] LABS: Hematocrit 30.7 % (36.0-46.0); Mean Corpuscular Volume 70.9 fL (80.0-100.0)
[2025-08-11 10:48] LABS: Alanine Aminotransferase 20 U/L (7-40); Albumin 3.9 g/dL (3.2-4.8); Alkaline Phosphatase 59 U/L (46-116); Anion Gap 9 (5-15); BUN/Creatinine Ratio 11.6 (10.0-20.0); Calcium 8.8 mg/dL (8.7-10.4); Carbon Dioxide 27 mmol/L (20-31); Chloride 104 mmol/L (98-107); Potassium 3.9 mmol/L (3.5-5.1); Sodium 140 mmol/L (136-145); Total Protein 6.6 g/dL (5.7-8.2)
[2025-08-11 10:49] LABS: Bilirubin, Total 0.6 mg/dL (0.2-1.0)
[2025-08-11 10:50] LABS: Blood Urea Nitrogen 8 mg/dL (9-23); Glucose 159 mg/dL (74-106)
--- NOTE | 2025-08-11 17:51 | DVHPN2 ---
Progress Note - Dictate Date Seen: Aug 11, 2025 Medical Necessity Reason Pt with a Central, PICC or Fol: No vital signs Vital Sign Date Time Temp Pulse Resp B/P (MAP) Pulse Ox O2 Delivery O2 Flow Rate FiO2 08/11/25 17:00 97.0 81 19 124/64 (84) 95 97.0 08/11/25 08:13 Nasal Cannula* 3 32 Total Intake and Output 08/10/25 08/10/25 08/11/25 15:00 23:00 07:00 Intake Total 180 ml 400 ml 200 ml Balance 180 ml 400 ml 200 ml medications Current Medications Medications Dose Ordered Sig/Acacia Route Start Time Stop Time Status Last Admin Dose Admin Aspirin 81 mg DAILY PO 08/09/25 10:00 08/11/25 09:26 81 MG Clopidogrel Bisulfate 75 mg DAILY PO 08/09/25 10:00 08/11/25 09:26 75 MG Atorvastatin Calcium 80 mg HS PO 08/08/25 22:00 08/10/25 21:44 80 MG Nitroglycerin 0.4 mg Q5MINP PRN SL 08/08/25 16:00 Morphine Sulfate 2 mg Q30M PRN IV 08/08/25 16:00 Hold Diagnostic Test (Pha) 1 strip ACHS 08/08/25 17:00 08/11/25 11:59 1 STRIP Insulin Human Regular ACHS SC 08/08/25 17:00 08/11/25 11:58 4 UNITS Dextrose 50 ml UD PRN IV 08/08/25 16:15 Acetaminophen/ Hydrocodone Bitart 1 tab Q4HP PRN PO 08/08/25 16:15 08/11/25 09:27 1 TAB Ondansetron HCl 4 mg Q4HP PRN IV 08/08/25 16:15 08/08/25 18:05 4 MG Acetaminophen 650 mg Q6HP PRN PO 08/08/25 16:15 Enoxaparin Sodium 30 mg DAILY SC 08/10/25 10:00 08/11/25 09:27 30 MG laboratory and microbiology Laboratory Tests 08/11/25 09:45 Test 08/11/25 09:45 Range/Units Serum Glucose 159 H 74-106 mg/dL Assessment/Plan 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
[2025-08-12] VITALS (8 sets, daily range): BP systolic 107–141; BP diastolic 59–77; PULSE 71–98; RESP 16–18; TEMP 97.2–99.2; O2SAT 92–99
--- NOTE | 2025-08-12 00:59 | DVHPN2 ---
Reviewed: Care Plan Changes from previous H/P or p: No Changes General: Per HPI Objective Vitals Vital Signs Date Time Temp Pulse Resp B/P (MAP) Pulse Ox O2 Delivery O2 Flow Rate FiO2 08/11/25 21:00 98.0 83 18 114/60 (78) 98 98.0 08/11/25 20:00 Nasal Cannula* 3 32 Intake/Output Intake and Output 08/12/25 07:00 Intake Total 350 ml Balance 350 ml Intake Oral 350 ml # Voids 1 General Appearance: Alert, Oriented X3 HEENT: Atraumatic Cardiovascular: Regular rate, Normal S1 Abdomen: Normal bowel sounds Medications Current Medications Medications Dose Ordered Sig/Acacia Route Start Time Stop Time Status Last Admin Dose Admin Aspirin 81 mg DAILY PO 08/09/25 10:00 08/11/25 09:26 81 MG Clopidogrel Bisulfate 75 mg DAILY PO 08/09/25 10:00 08/11/25 09:26 75 MG Atorvastatin Calcium 80 mg HS PO 08/08/25 22:00 08/11/25 21:36 80 MG Nitroglycerin 0.4 mg Q5MINP PRN SL 08/08/25 16:00 Morphine Sulfate 2 mg Q30M PRN IV 08/08/25 16:00 Hold Diagnostic Test (Pha) 1 strip ACHS 08/08/25 17:00 08/11/25 21:38 1 STRIP Insulin Human Regular ACHS SC 08/08/25 17:00 08/11/25 21:37 2 UNITS Dextrose 50 ml UD PRN IV 08/08/25 16:15 Acetaminophen/ Hydrocodone Bitart 1 tab Q4HP PRN PO 08/08/25 16:15 08/11/25 20:22 1 TAB Ondansetron HCl 4 mg Q4HP PRN IV 08/08/25 16:15 08/08/25 18:05 4 MG Acetaminophen 650 mg Q6HP PRN PO 08/08/25 16:15 Enoxaparin Sodium 30 mg DAILY SC 08/10/25 10:00 08/11/25 09:27 30 MG Laboratory Results Laboratory Tests 08/11/25 09:45 Chemistry Test 08/11/25 09:45 Albumin 3.9 g/dL (3.2-4.8) Calcium Level 8.8 mg/dL (8.7-10.4) Total Protein 6.6 g/dL (5.7-8.2) LFT Test 08/11/25 09:45 Alanine Aminotransferase (ALT) 20 U/L (7-40) Alkaline Phosphatase 59 U/L (46-116) Aspartate Amino Transferase (AST) 31 U/L (13-40) Total Bilirubin 0.6 mg/dL (0.2-1.0) Microbiology Microbiology Date/Time Source Procedure Growth Status 08/08/25 18:00 Nose MRSA Screen - Final Complete Labs and/or images reviewed: Labs reviewed by me Assessment/Plan Assessment/Plan STEMI Diabetes mellitus Hypotension obesity chest pain s/p staged stent placement pt is doing well next stage is scheduled on Tuesday Plan discussed with: Patient Date of Service: Aug 09, 2025 Billing Provider: AURE EARLY DO Common Visit Codes: [id number] INP/OBS CARE(HIGH) AURE EARLY DO Aug 12, 2025 00:59
--- NOTE | 2025-08-12 01:04 | DVHPN2 ---
Reviewed: Care Plan, H&P Changes from previous H/P or p: No Changes General: Per HPI Objective Vitals Vital Signs Date Time Temp Pulse Resp B/P (MAP) Pulse Ox O2 Delivery O2 Flow Rate FiO2 08/11/25 21:00 98.0 83 18 114/60 (78) 98 98.0 08/11/25 20:00 Nasal Cannula* 3 32 Intake/Output Intake and Output 08/12/25 07:00 Intake Total 350 ml Balance 350 ml Intake Oral 350 ml # Voids 1 General Appearance: Alert, Oriented X3 HEENT: Atraumatic Cardiovascular: Regular rate, Normal S1 Abdomen: Normal bowel sounds Medications Current Medications Medications Dose Ordered Sig/Acacia Route Start Time Stop Time Status Last Admin Dose Admin Aspirin 81 mg DAILY PO 08/09/25 10:00 08/11/25 09:26 81 MG Clopidogrel Bisulfate 75 mg DAILY PO 08/09/25 10:00 08/11/25 09:26 75 MG Atorvastatin Calcium 80 mg HS PO 08/08/25 22:00 08/11/25 21:36 80 MG Nitroglycerin 0.4 mg Q5MINP PRN SL 08/08/25 16:00 Morphine Sulfate 2 mg Q30M PRN IV 08/08/25 16:00 Hold Diagnostic Test (Pha) 1 strip ACHS 08/08/25 17:00 08/11/25 21:38 1 STRIP Insulin Human Regular ACHS SC 08/08/25 17:00 08/11/25 21:37 2 UNITS Dextrose 50 ml UD PRN IV 08/08/25 16:15 Acetaminophen/ Hydrocodone Bitart 1 tab Q4HP PRN PO 08/08/25 16:15 08/11/25 20:22 1 TAB Ondansetron HCl 4 mg Q4HP PRN IV 08/08/25 16:15 08/08/25 18:05 4 MG Acetaminophen 650 mg Q6HP PRN PO 08/08/25 16:15 Enoxaparin Sodium 30 mg DAILY SC 08/10/25 10:00 08/11/25 09:27 30 MG Laboratory Results Laboratory Tests 08/11/25 09:45 Chemistry Test 08/11/25 09:45 Albumin 3.9 g/dL (3.2-4.8) Calcium Level 8.8 mg/dL (8.7-10.4) Total Protein 6.6 g/dL (5.7-8.2) LFT Test 08/11/25 09:45 Alanine Aminotransferase (ALT) 20 U/L (7-40) Alkaline Phosphatase 59 U/L (46-116) Aspartate Amino Transferase (AST) 31 U/L (13-40) Total Bilirubin 0.6 mg/dL (0.2-1.0) Microbiology Microbiology Date/Time Source Procedure Growth Status 08/08/25 18:00 Nose MRSA Screen - Final Complete Assessment/Plan Assessment/Plan STEMI Diabetes mellitus Hypotension obesity chest pain s/p staged stent placement pt is doing well next stage is scheduled on Tuesday Plan discussed with: Patient Date of Service: Aug 10, 2025 Billing Provider: AURE EARLY DO Common Visit Codes: [id number] INP/OBS CARE(HIGH) AURE EARLY DO Aug 12, 2025 01:04
[2025-08-12 07:00] LABS: Nucleated Red Blood Cells % 0.0 %
[2025-08-12 07:02] LABS: Hematocrit 29.2 % (36.0-46.0); Hemoglobin 9.6 g/dL (12.2-16.2); Mean Corpuscular Hemoglobin 23.3 pg (28.0-32.0); Mean Corpuscular Volume 71.0 fL (80.0-100.0)
[2025-08-12 07:20] LABS: Alanine Aminotransferase 17 U/L (7-40); Albumin 3.8 g/dL (3.2-4.8); Alkaline Phosphatase 58 U/L (46-116); Anion Gap 9 (5-15); BUN/Creatinine Ratio 14.1 (10.0-20.0); Blood Urea Nitrogen 10 mg/dL (9-23); Carbon Dioxide 27 mmol/L (20-31); Chloride 104 mmol/L (98-107); Potassium 3.9 mmol/L (3.5-5.1); Sodium 140 mmol/L (136-145); Total Protein 6.2 g/dL (5.7-8.2)
[2025-08-12 07:21] LABS: Bilirubin, Total 0.6 mg/dL (0.2-1.0)
[2025-08-12 07:22] LABS: Calcium 8.4 mg/dL (8.7-10.4); Glucose 144 mg/dL (74-106)
--- NOTE | 2025-08-12 12:01 | DVHPN2 ---
Consult Progress Note Date Seen: Aug 12, 2025 Subjective Review of Systems: CVS:Normal, RESPIRATORY:Normal, NEURO:Normal Objective vital signs Vital Sign Date Time Temp Pulse Resp B/P (MAP) Pulse Ox O2 Delivery O2 Flow Rate FiO2 08/12/25 09:20 97.6 71 16 124/64 (84) 97 97.6 08/12/25 08:00 Nasal Cannula* 3 32 Total Intake and Output 08/11/25 08/11/25 08/12/25 15:00 23:00 07:00 Intake Total 350 ml 400 ml Balance 350 ml 400 ml medications Current Medications Medications Dose Ordered Sig/Acacia Route Start Time Stop Time Status Last Admin Dose Admin Aspirin 81 mg DAILY PO 08/09/25 10:00 08/12/25 09:11 81 MG Clopidogrel Bisulfate 75 mg DAILY PO 08/09/25 10:00 08/12/25 09:12 75 MG Atorvastatin Calcium 80 mg HS PO 08/08/25 22:00 08/11/25 21:36 80 MG Nitroglycerin 0.4 mg Q5MINP PRN SL 08/08/25 16:00 Morphine Sulfate 2 mg Q30M PRN IV 08/08/25 16:00 Hold Diagnostic Test (Pha) 1 strip ACHS 08/08/25 17:00 08/12/25 11:28 1 STRIP Insulin Human Regular ACHS SC 08/08/25 17:00 08/12/25 11:33 4 UNITS Dextrose 50 ml UD PRN IV 08/08/25 16:15 Acetaminophen/ Hydrocodone Bitart 1 tab Q4HP PRN PO 08/08/25 16:15 08/12/25 04:46 1 TAB Ondansetron HCl 4 mg Q4HP PRN IV 08/08/25 16:15 08/08/25 18:05 4 MG Acetaminophen 650 mg Q6HP PRN PO 08/08/25 16:15 Enoxaparin Sodium 30 mg DAILY SC 08/10/25 10:00 08/12/25 09:13 30 MG Examination: LUNGS:Normal, CVS:Normal, NEURO:Normal laboratory and microbiology Laboratory Tests 08/12/25 06:13 Test 08/12/25 06:13 Range/Units Serum Glucose 144 H 74-106 mg/dL Problem List/Assessment/Plan Problem List/Assessment/Plan 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 The left main has an ostial lesion of 75-80%. Successful PTCA and stenting of the RCA x 1DES (see full dictated report) * Transthoracic echocardiogram revealed a LVEF of 65% with normal RV function. Mild inferior basal hypokinesis (see full dictated report) * 12-lead electrocardiogram on 08/08/[address]-elevation to inferoposterior leads * Baseline troponin level 10 ng/L. BNP 116 Plan/Recommendation (Dr. Garcia) The patient with an acute inferoposterior myocardial infarction underwent a successful PTCA and stenting of the RCA x 1 ROJAS (culprit lesion). The left main has an ostial lesion of 75-80% for which a staged procedure has been recommended which is scheduled for Tuesday08/14/25. In the meantime, continue dual- antiplatelet therapy, high-intensity statin, and initiate DVT/VTE prophylaxis. Beta-sarah held secondary to bradycardia. Obtain surgical records from [facility] in regards of coronary angiogram from 11/2024. Further orders per clinical course. Thank you for allowing us to participate in this patient's care. Please call if you have any questions or concerns. This medical document was created using an electronic medical record system with voice recognition software and computerized dictation system. Although this document has been carefully reviewed, there might still be some phonetic and typographical errors. Occasional wrong-word or ``sound-alike substitutions may have occurred due to the inherent limitations of voice recognition software. These areas are purely typographical due to imperfections of the software programs and do not reflect any compromise in the patient's medical care. Please read the chart carefully and recognize, using context, where these substitutions have occurred. Plan discussed with: Patient, Other (Niece) Date of Service: Aug 12, 2025 Billing Provider: JAMI SMITH Cardiology Common Codes: [id number] HOSP CARE([facility] JAMI SMITHP Aug 12, 2025 12:00
[2025-08-13] VITALS (8 sets, daily range): BP systolic 111–124; BP diastolic 52–65; PULSE 74–81; RESP 16–18; TEMP 96.7–98.4; O2SAT 93–100
--- NOTE | 2025-08-13 07:24 | ECG ---
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
[2025-08-13 07:26] LABS: Hemoglobin 9.4 g/dL (12.2-16.2); Mean Corpuscular Hemoglobin 22.9 pg (28.0-32.0); Mean Corpuscular Volume 70.7 fL (80.0-100.0)
[2025-08-13 07:29] LABS: Hematocrit 29.2 % (36.0-46.0); Nucleated Red Blood Cells % 0.1 %
[2025-08-13 07:59] LABS: Alanine Aminotransferase 15 U/L (7-40); Albumin 3.8 g/dL (3.2-4.8); Alkaline Phosphatase 60 U/L (46-116); Anion Gap 8 (5-15); BUN/Creatinine Ratio 12.7 (10.0-20.0); Carbon Dioxide 28 mmol/L (20-31); Chloride 104 mmol/L (98-107); Potassium 4.5 mmol/L (3.5-5.1); Sodium 140 mmol/L (136-145); Total Protein 6.3 g/dL (5.7-8.2)
[2025-08-13 08:00] LABS: Bilirubin, Total 0.4 mg/dL (0.2-1.0)
[2025-08-13 08:01] LABS: Blood Urea Nitrogen 9 mg/dL (9-23); Calcium 8.5 mg/dL (8.7-10.4); Glucose 116 mg/dL (74-106)
[2025-08-13] MEDS ORDERED: HYDR-3682 PO (09:40)
[2025-08-13] MEDS ORDERED: SERT25TA28 (09:40)
--- NOTE | 2025-08-13 10:06 | DVHPN2 ---
Consult Progress Note Date Seen: Aug 13, 2025 Subjective Review of Systems: CVS:Normal, RESPIRATORY:Normal, NEURO:Normal Objective vital signs Vital Sign Date Time Temp Pulse Resp B/P (MAP) Pulse Ox O2 Delivery O2 Flow Rate FiO2 08/13/25 08:30 97.0 77 16 124/59 (80) 96 97.0 08/12/25 20:00 Nasal Cannula* 3 32 Total Intake and Output 08/12/25 08/12/25 08/13/25 15:00 23:00 07:00 Intake Total 900 ml 1200 ml Output Total 1600 ml Balance 900 ml -400 ml medications Current Medications Medications Dose Ordered Sig/Acacia Route Start Time Stop Time Status Last Admin Dose Admin Aspirin 81 mg DAILY PO 08/09/25 10:00 08/13/25 09:45 81 MG Clopidogrel Bisulfate 75 mg DAILY PO 08/09/25 10:00 08/13/25 09:45 75 MG Atorvastatin Calcium 80 mg HS PO 08/08/25 22:00 08/12/25 20:53 80 MG Nitroglycerin 0.4 mg Q5MINP PRN SL 08/08/25 16:00 Morphine Sulfate 2 mg Q30M PRN IV 08/08/25 16:00 Hold Diagnostic Test (Pha) 1 strip ACHS 08/08/25 17:00 08/13/25 07:15 1 STRIP Insulin Human Regular ACHS SC 08/08/25 17:00 08/12/25 21:07 3 UNITS Dextrose 50 ml UD PRN IV 08/08/25 16:15 Acetaminophen/ Hydrocodone Bitart 1 tab Q4HP PRN PO 08/08/25 16:15 08/13/25 09:44 1 TAB Ondansetron HCl 4 mg Q4HP PRN IV 08/08/25 16:15 08/08/25 18:05 4 MG Acetaminophen 650 mg Q6HP PRN PO 08/08/25 16:15 Enoxaparin Sodium 30 mg DAILY SC 08/10/25 10:00 08/13/25 09:47 30 MG Examination: LUNGS:Normal, CVS:Normal, NEURO:Normal laboratory and microbiology Laboratory Tests 08/13/25 05:44 Test 08/13/25 05:44 Range/Units Serum Glucose 116 H 74-106 mg/dL Problem List/Assessment/Plan Problem List/Assessment/Plan 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 The left main has an ostial lesion of 75-80%. Successful PTCA and stenting of the RCA x 1DES (see full dictated report) * Transthoracic echocardiogram revealed a LVEF of 65% with normal RV function. Mild inferior basal hypokinesis (see full dictated report) * 12-lead electrocardiogram on 08/08/[address]-elevation to inferoposterior leads * Baseline troponin level 10 ng/L. BNP 116 * Medical records from [facility]: * 12/10/2024 Severe diffuse up to 90% stenosis proximal to mid RCA heavily calcified status post IV IL lithotripsy balloon 3.5 x 12 mm followed by deployment of 4.0 x 48 mm Xience abby point drug-eluting stent post-dilated to 4.2 mm diameter. Moderate 40% stenosis ostial left main which will be manages medically for now. Reccommendations: Continue ASA lifelong, Plavix for at least a year, high dose statin. Continue aggressive medical management and risk facto modification (Cesilia Eric MD). Plan/Recommendation (Dr. Garcia) The patient with an acute inferoposterior myocardial infarction underwent a successful PTCA and stenting of the RCA x 1 ROJAS (culprit lesion). The left main has an ostial lesion of 75-80% for which a staged procedure has been recommended which is scheduled for Tuesday08/14/25. In the meantime, continue dual- antiplatelet therapy, high-intensity statin, and initiate DVT/VTE prophylaxis. Beta-sarah held secondary to bradycardia. Further orders per clinical course. Thank you for allowing us to participate in this patient's care. Please call if you have any questions or concerns. This medical document was created using an electronic medical record system with voice recognition software and computerized dictation system. Although this document has been carefully reviewed, there might still be some phonetic and typographical errors. Occasional wrong-word or ``sound-alike substitutions may have occurred due to the inherent limitations of voice recognition software. These areas are purely typographical due to imperfections of the software programs and do not reflect any compromise in the patient's medical care. Please read the chart carefully and recognize, using context, where these substitutions have occurred. Plan discussed with: Patient, Other Dietary Evaluation Review Comments: Monitor PO intake, lab values, weight trend, and I/O Expected Outcomes/Goals: Lab values to improve FU 3-5 days Date of Service: Aug 13, 2025 Billing Provider: JAMI SMITH Cardiology Common Codes: [id number] HOSP CARE(High JAMI SMITH Aug 13, 2025 10:06
[2025-08-13] MEDS: ALPRAZolam 0.25 MG TAB PO ONE (11:28)
[2025-08-13] MEDS ORDERED: DOCUSATE SOD 100 MG CAP PO PRN (17:30)
--- NOTE | 2025-08-13 23:38 | DVHPN2 ---
Reviewed: Care Plan, H&P Changes from previous H/P or p: No Changes General: Per HPI Objective Vitals Vital Signs Date Time Temp Pulse Resp B/P (MAP) Pulse Ox O2 Delivery O2 Flow Rate FiO2 08/13/25 21:00 98.4 81 18 124/65 (84) 93 98.4 08/13/25 20:00 Nasal Cannula* 3 32 Intake/Output Intake and Output 08/13/25 07:00 Intake Total 2100 ml Output Total 1600 ml Balance 500 ml Intake Oral 2100 ml Output Urine Total 1600 ml # Voids 4 # Bowel Movements 3 General Appearance: Alert, Oriented X3 HEENT: Atraumatic Cardiovascular: Regular rate, Normal S1 Abdomen: Normal bowel sounds Medications Current Medications Medications Dose Ordered Sig/Acacia Route Start Time Stop Time Status Last Admin Dose Admin Aspirin 81 mg DAILY PO 08/09/25 10:00 08/13/25 09:45 81 MG Clopidogrel Bisulfate 75 mg DAILY PO 08/09/25 10:00 08/13/25 09:45 75 MG Atorvastatin Calcium 80 mg HS PO 08/08/25 22:00 08/13/25 21:34 80 MG Nitroglycerin 0.4 mg Q5MINP PRN SL 08/08/25 16:00 Morphine Sulfate 2 mg Q30M PRN IV 08/08/25 16:00 Hold Diagnostic Test (Pha) 1 strip ACHS 08/08/25 17:00 08/13/25 16:35 1 STRIP Insulin Human Regular ACHS SC 08/08/25 17:00 08/13/25 21:41 3 UNITS Dextrose 50 ml UD PRN IV 08/08/25 16:15 Acetaminophen/ Hydrocodone Bitart 1 tab Q4HP PRN PO 08/08/25 16:15 08/13/25 21:42 1 TAB Ondansetron HCl 4 mg Q4HP PRN IV 08/08/25 16:15 08/08/25 18:05 4 MG Acetaminophen 650 mg Q6HP PRN PO 08/08/25 16:15 Enoxaparin Sodium 30 mg DAILY SC 08/10/25 10:00 08/13/25 09:47 30 MG Docusate Sodium 100 mg BIDPRN PRN PO 08/13/25 17:30 Laboratory Results Laboratory Tests 08/13/25 05:44 Chemistry Test 08/13/25 05:44 Albumin 3.8 g/dL (3.2-4.8) Calcium Level 8.5 mg/dL (8.7-10.4) L Total Protein 6.3 g/dL (5.7-8.2) LFT Test 08/13/25 05:44 Alanine Aminotransferase (ALT) 15 U/L (7-40) Alkaline Phosphatase 60 U/L (46-116) Aspartate Amino Transferase (AST) 19 U/L (13-40) Total Bilirubin 0.4 mg/dL (0.2-1.0) Microbiology Microbiology Date/Time Source Procedure Growth Status 08/08/25 18:00 Nose MRSA Screen - Final Complete Assessment/Plan Assessment/Plan STEMI Diabetes mellitus Hypotension obesity chest pain s/p staged stent placement pt is doing well next stage is scheduled on Tuesday (tomorrow) Plan discussed with: Patient My Orders Orders - AURE EARLY DO Procedure Category Date Status Time Docusate Sodium PHA 08/13/25 In Process Capsule (Colace 17:30 Date of Service: Aug 13, 2025 Billing Provider: AURE EARLY DO Common Visit Codes: [id number] INP/OBS CARE(HIGH) AURE EARLY DO Aug 13, 2025 23:38
[2025-08-14] VITALS (14 sets, daily range): BP systolic 114–141; BP diastolic 51–69; PULSE 65–84; RESP 14–18; TEMP 97.8–99.2; O2SAT 90–100
[2025-08-14 06:05] LABS: Hematocrit 30.6 % (36.0-46.0); Hemoglobin 10.0 g/dL (12.2-16.2); Mean Corpuscular Hemoglobin 22.9 pg (28.0-32.0); Mean Corpuscular Volume 70.3 fL (80.0-100.0); Nucleated Red Blood Cells % 0.0 %
[2025-08-14 06:18] LABS: Anion Gap 8 (5-15); Carbon Dioxide 31 mmol/L (20-31); Chloride 105 mmol/L (98-107); Potassium 4.0 mmol/L (3.5-5.1); Sodium 144 mmol/L (136-145)
[2025-08-14 06:20] LABS: Calcium 9.0 mg/dL (8.7-10.4)
[2025-08-14 06:24] LABS: BUN/Creatinine Ratio 11.0 (10.0-20.0)
[2025-08-14 06:25] LABS: Blood Urea Nitrogen 8 mg/dL (9-23); Glucose 123 mg/dL (74-106)
[2025-08-14 06:34] LABS: INR 1.0 (0.9-1.15); Partial Thromboplastin Time 26.5 SEC (24.5-34.5); Prothrombin Time 10.6 sec (9.3-11.8)
--- NOTE | 2025-08-14 09:56 | DVHPN2 ---
Subjective c/o pain in right arm due to IV access Reviewed: Care Plan, H&P Changes from previous H/P or p: Changes General: Per HPI Objective Vitals Vital Signs Date Time Temp Pulse Resp B/P (MAP) Pulse Ox O2 Delivery O2 Flow Rate FiO2 08/14/25 08:45 98.2 82 18 136/69 (91) 96 98.2 08/13/25 20:00 Nasal Cannula* 3 32 Intake/Output Intake and Output 08/14/25 06:59 Intake Total 2100 ml Balance 2100 ml Intake Oral 2100 ml # Voids 8 # Bowel Movements 3 General Appearance: Alert, Oriented X3 HEENT: Atraumatic Cardiovascular: Regular rate, Normal S1 Abdomen: Normal bowel sounds Medications Current Medications Medications Dose Ordered Sig/Acacia Route Start Time Stop Time Status Last Admin Dose Admin Aspirin 81 mg DAILY PO 08/09/25 10:00 08/13/25 09:45 81 MG Clopidogrel Bisulfate 75 mg DAILY PO 08/09/25 10:00 08/13/25 09:45 75 MG Atorvastatin Calcium 80 mg HS PO 08/08/25 22:00 08/13/25 21:34 80 MG Nitroglycerin 0.4 mg Q5MINP PRN SL 08/08/25 16:00 Morphine Sulfate 2 mg Q30M PRN IV 08/08/25 16:00 Hold Diagnostic Test (Pha) 1 strip ACHS 08/08/25 17:00 08/14/25 06:36 1 STRIP Insulin Human Regular ACHS SC 08/08/25 17:00 08/13/25 21:41 3 UNITS Dextrose 50 ml UD PRN IV 08/08/25 16:15 Acetaminophen/ Hydrocodone Bitart 1 tab Q4HP PRN PO 08/08/25 16:15 08/13/25 21:42 1 TAB Ondansetron HCl 4 mg Q4HP PRN IV 08/08/25 16:15 08/08/25 18:05 4 MG Acetaminophen 650 mg Q6HP PRN PO 08/08/25 16:15 Enoxaparin Sodium 30 mg DAILY SC 08/10/25 10:00 08/13/25 09:47 30 MG Docusate Sodium 100 mg BIDPRN PRN PO 08/13/25 17:30 Laboratory Results Laboratory Tests 08/14/25 05:38 Chemistry Test 08/14/25 05:38 Calcium Level 9.0 mg/dL (8.7-10.4) Coagulation Test 08/14/25 05:38 Prothrombin Time 10.6 sec (9.3-11.8) Prothrombin Time INR 1.00 (0.9-1.15) Activated Partial Thromboplast Time 26.5 SEC (24.5-34.5) Microbiology Microbiology Date/Time Source Procedure Growth Status 08/08/25 18:00 Nose MRSA Screen - Final Complete Assessment/Plan Assessment/Plan STEMI s/p RCA stent PCI CAD Left main disease scheduled for PCI today Diabetes mellitus Hypotension obesity Mixed hyperlipidemia Old CVA PLAN: Angioplasty today Aspirin Plavix Lipitor Monitor closely Plan discussed with: Patient Date of Service: Aug 14, 2025 Billing Provider: BELL MCGARRY MD Common Visit Codes: NOT BILLABLE BELL MCGARRY MD Aug 14, 2025 09:55
[2025-08-14] MEDS: IODIXANOL 320MG/ML 100ML BTL IV ONE (12:01)
[2025-08-14] MEDS: ANGIOMAX 250 MG VIAL IV ONE (12:04)
[2025-08-14] MEDS: HEPARIN SODIUM (PORCINE) 5000 UNITS/ML 1ML VIAL ONE (12:05)
[2025-08-14] MEDS: LIDOCAINE 2%HCL (LOCAL ANESTH.) INJ 20ML MDV ONE (12:05)
[2025-08-14] MEDS: fentaNYL CITRATE 100 MCG/2 ML VL ONE (12:05)
[2025-08-14] MEDS: SODIUM CHL 0.9% 50 ML ONE (12:05)
[2025-08-14] MEDS: VERAPAMIL 2.5MG/ML INJ 2ML VIAL IV ONE ×2 (12:05→13:26)
[2025-08-14] MEDS: MIDAZOLAM HCL 2MG/2ML 2ml VIAL (1mg/ml) ONE (12:05)
[2025-08-14] MEDS: ATROPINE SULF 1 MG/10ml SYR ONE (12:48)
[2025-08-14] MEDS: CLOPIDOGREL BISULFATE 75 MG TAB ONE (13:26)
--- NOTE | 2025-08-14 13:53 | DVHOP2 ---
Operative Report - 2 Report Details Date: 08/14/25 Preop Diagnosis: Ostial left main stenosis Postop Diagnosis: Successful PTCA stenting and intravascular ultrasound evaluation of the left main Surgeon: Ashlyn Garcia MD Anesthesiologist: Conscious sedation Anesthesia: Mac, Local Consent: The patient was informed of the risks and benefits of the procedure. These include but are not limited to complications of anesthesia, postoperative infection, incomplete relief of symptoms, recurrence of symptoms, damage to blood vessels, nerves and tendons, deep venous thrombosis, pulmonary embolism and possible need for repeat surgery in the future. Complications: No complications Findings: Ostial stenosis of left main Indications for Surgery: Severe ostial stenosis of the left main Name of Procedure Performed Angiographic evaluation of RCA and left main coronary artery. PTCA and stenting of the left main. Intravascular ultrasound evaluation of ostial left main Procedure Details Procedure Details: Prior local anesthesia with 2% lidocaine to the right groin and full informed consent obtained the patient was prepped and draped in the usual fashion followed by placement of a six [place] sheath in the femoral artery and a six [place] sheath into the femoral vein for venous access. A 3-0 EBU guide was then used to perform angiographic evaluation of the RCA as well as cannulation of the left main and angioplasty of the left main. Hemodynamics: Aortic blood pressure was 130/70. End-diastolic pressure was not measured. Angiographic evaluation of RCA shows patent stents with patent PDA and posterolateral branches. Left main has an angiographic lead discernible ostial stenosis of a proximally 75-80%. This is confirmed with intravascular ultrasound evaluation revealed a hemodynamically significant stenosis. Subsequent to sizing with an intravascular ultrasound device we directly stented with a 4-0 by 8 mm stent to approximately 12 atmospheres. Post dilated and flared ostial to 14 atmospheres. There was excellent antegrade flow without thrombus formation under dissection. Impression: Successful PTCA and stenting, ultrasound evaluation of the left main. Patent RCA recently stented. Recommendations: Continue dual antiplatelet therapy. Outpatient follow-up Condition Fair Disposition Still a Patient Date of Service: Aug 14, 2025 Billing Provider: ASHLYN GARCIA Sr., MD Cardiology Common Codes: [id number] INP/OBS CARE (High) Cardiology Procedure Codes: 99189 -PTCA W/STENT PLACEMENT (Intravascular ultrasound evaluation) ASHLYN GARCIA Sr., MD Aug 14, 2025 13:53
[2025-08-15] VITALS (7 sets, daily range): BP systolic 114–142; BP diastolic 58–67; PULSE 65–81; RESP 16–18; TEMP 97.4–98; O2SAT 90–100
[2025-08-15 06:05] LABS: Mean Corpuscular Hemoglobin 22.9 pg (28.0-32.0)
[2025-08-15 06:08] LABS: Hematocrit 29.5 % (36.0-46.0); Hemoglobin 9.6 g/dL (12.2-16.2); Mean Corpuscular Volume 70.4 fL (80.0-100.0); Nucleated Red Blood Cells % 0.0 %
[2025-08-15 06:45] LABS: Alanine Aminotransferase 13 U/L (7-40); Alkaline Phosphatase 62 U/L (46-116); Carbon Dioxide 29 mmol/L (20-31); Chloride 106 mmol/L (98-107); Potassium 3.8 mmol/L (3.5-5.1)
[2025-08-15 06:46] LABS: Albumin 3.8 g/dL (3.2-4.8); Anion Gap 8 (5-15); BUN/Creatinine Ratio 12.5 (10.0-20.0); Magnesium 1.9 mg/dL (1.6-2.6); Sodium 143 mmol/L (136-145); Total Protein 6.4 g/dL (5.7-8.2)
[2025-08-15 06:47] LABS: Bilirubin, Total 0.3 mg/dL (0.2-1.0)
[2025-08-15 06:48] LABS: Blood Urea Nitrogen 8 mg/dL (9-23); Calcium 8.6 mg/dL (8.7-10.4); Glucose 129 mg/dL (74-106)
--- NOTE | 2025-08-15 12:57 | DVHPN2 ---
Consult Progress Note Subjective Other Systems: Patient is in normal sinus rhythm on threat monitoring analyst at time of assessment. She denies any cardiac symptoms Objective vital signs Vital Sign Date Time Temp Pulse Resp B/P (MAP) Pulse Ox O2 Delivery O2 Flow Rate FiO2 08/15/25 09:00 97.9 72 16 142/67 (92) 100 97.9 08/14/25 20:25 Nasal Cannula* 2 28 Total Intake and Output 08/14/25 08/14/25 08/15/25 15:00 23:00 07:00 Intake Total 200 ml 350 ml Balance 200 ml 350 ml medications Current Medications Medications Dose Ordered Sig/Acacia Route Start Time Stop Time Status Last Admin Dose Admin Aspirin 81 mg DAILY PO 08/09/25 10:00 08/15/25 10:22 81 MG Clopidogrel Bisulfate 75 mg DAILY PO 08/09/25 10:00 08/15/25 10:22 75 MG Atorvastatin Calcium 80 mg HS PO 08/08/25 22:00 08/14/25 21:43 80 MG Nitroglycerin 0.4 mg Q5MINP PRN SL 08/08/25 16:00 Morphine Sulfate 2 mg Q30M PRN IV 08/08/25 16:00 Hold Diagnostic Test (Pha) 1 strip ACHS 08/08/25 17:00 08/15/25 11:32 1 STRIP Insulin Human Regular ACHS SC 08/08/25 17:00 08/15/25 12:12 2 UNITS Dextrose 50 ml UD PRN IV 08/08/25 16:15 Acetaminophen/ Hydrocodone Bitart 1 tab Q4HP PRN PO 08/08/25 16:15 08/15/25 06:04 1 TAB Ondansetron HCl 4 mg Q4HP PRN IV 08/08/25 16:15 08/08/25 18:05 4 MG Acetaminophen 650 mg Q6HP PRN PO 08/08/25 16:15 Enoxaparin Sodium 30 mg DAILY SC 08/10/25 10:00 08/15/25 10:22 30 MG Docusate Sodium 100 mg BIDPRN PRN PO 08/13/25 17:30 Examination: GENERAL:Normal, LUNGS:Normal, CVS:Normal, NEURO:Normal laboratory and microbiology Laboratory Tests 08/15/25 05:12 Test 08/15/25 05:12 Range/Units Serum Glucose 129 H 74-106 mg/dL Problem List/Assessment/Plan Problem List/Assessment/Plan Acute inferoposterior myocardial infarction status post PTCA and stenting of the RCA x 1 ROJAS Hx of coronary artery disease status post PTCA and stenting of the RCA x 1DES at [facility] on 11/2024 Right carotid artery stenosis, mild-moderate degree Hypertension Dyslipidemia Hx of CVAs x2 Due-iajrgsd-ghlgobluq diabetes mellitus Iron deficiency anemia * Medical records from [facility]: * 12/10/2024 "Severe diffuse up to 90% stenosis proximal to mid RCA heavily calcified status post IV IL lithotripsy balloon 3.5 x 12 mm followed by deployment of 4.0 x 48 mm Xience abby point drug-eluting stent post-dilated to 4.2 mm diameter. Moderate 40% stenosis ostial left main which will be managed medically for now. Recommendations: Continue ASA lifelong, Plavix for at least a year, high dose statin. Continue aggressive medical management and risk facto modification (Cesilia Eric MD)." * Coronary angiogram with cardiac catheterization on 08/08/2025: The RCA is occluded 100% at its proximal to mid section. The left main has an ostial lesion of 75-80%. Successful PTCA and stenting of the RCA x 1DES (see full dictated report) * Transthoracic echocardiogram revealed a LVEF of 65% with normal RV function. Mild inferior basal hypokinesis (see full dictated report) * 12-lead electrocardiogram on 08/08/[address]-elevation to inferoposterior leads * Coronary angiogram with cardiac catheterization on 08/14/2025: Successful PTCA and stenting, ultrasound evaluation of the left main. Plan/Recommendation (Dr. Garcia) The patient with an acute inferoposterior myocardial infarction underwent a successful PTCA and stenting of the RCA x 1 ROJAS (culprit lesion). The patient subsequently underwent a staged coronary angiogram on 08/14/2025 with successful PTCA and stenting of ostial left main. We will recommend to continue with dual antiplatelet therapy and lipid-lowering agent. Patient's home MARY inhibitor was reinitiated. Consider low-dose beta-sarah if no further events of bradycardia occur. The patient was also educated on dietary and lifestyle changes. The patient states she will follow up with her primary aviation technician aircraft post discharge. There is no further inpatient cardiac workup indicated at this time. Thank you for allowing us to participate in this patient's care. Please call if you have any questions or concerns. This medical document was created using an electronic medical record system with voice recognition software and computerized dictation system. Although this document has been carefully reviewed, there might still be some phonetic and typographical errors. Occasional wrong-word or ``sound-alike substitutions may have occurred due to the inherent limitations of voice recognition software. These areas are purely typographical due to imperfections of the software programs and do not reflect any compromise in the patient's medical care. Please read the chart carefully and recognize, using context, where these substitutions have occurred. Plan discussed with: Patient Dietary Evaluation Review Comments: Monitor PO intake, lab values, weight trend, and I/O Expected Outcomes/Goals: Lab values to improve FU 3-5 days Date of Service: Aug 15, 2025 Billing Provider: REGAN ZAVALETA Common Visit Codes: [id number] INP/OBS CARE(HIGH) REGAN ZAVALETA Aug 15, 2025 12:56
--- NOTE | 2025-08-15 14:51 | DVHDS2 ---
Discharge Summary Date of Admission Aug 08, 2025 at 15:55 Date of Discharge: Aug 15, 2025 Labs/Diagnostic Data: Laboratory Results Test 08/15/25 11:29 08/15/25 05:12 08/14/25 05:38 08/08/25 15:31 POC Glucose 154 mg/dl (70-106) White Blood Count 5.5 10^3/uL (4.4-10.8) Red Blood Count 4.19 10^6/uL (4.0-5.20) Hemoglobin 9.6 g/dL (12.2-16.2) Hematocrit 29.5 % (36.0-46.0) Mean Corpuscular Volume 70.4 fL (80.0-100.0) Mean Corpuscular Hemoglobin 22.9 pg (28.0-32.0) Mean Corpuscular Hemoglobin Concent 32.5 g/dL (32.0-36.0) Red Cell Distribution Width 14.4 % (11.8-14.3) Platelet Count 289 10^3/uL (140-450) Mean Platelet Volume 7.1 fL (6.9-10.8) Neutrophils (%) (Auto) 62.0 % (37.0-80.0) Lymphocytes (%) (Auto) 23.7 % (10.0-50.0) Monocytes (%) (Auto) 8.4 % (0.0-12.0) Eosinophils (%) (Auto) 5.0 % (0.0-7.0) Basophils (%) (Auto) 0.9 % (0.0-2.0) Neutrophils # (Auto) 3.4 10 ^3/uL (1.6-8.6) Lymphocytes # (Auto) 1.3 10 ^3/uL (0.4-5.4) Monocytes # (Auto) 0.5 10 ^3/uL (0-1.3) Eosinophils # (Auto) 0.3 10 ^3/uL (0-0.8) Basophils # (Auto) 0 10 ^3/uL (0-0.2) Nucleated Red Blood Cells 0.0 % Sodium Level 143 mmol/L (136-145) Potassium Level 3.8 mmol/L (3.5-5.1) Chloride Level 106 mmol/L (98-107) Carbon Dioxide Level 29 mmol/L (20-31) Anion Gap 8 (5-15) Blood Urea Nitrogen 8 mg/dL (9-23) Creatinine 0.64 mg/dL (0.550-1.02) Glomerular Filtration Rate Calc 87 mL/min (>90) BUN/Creatinine Ratio 12.5 (10.0-20.0) Serum Glucose 129 mg/dL (74-106) Calcium Level 8.6 mg/dL (8.7-10.4) Magnesium Level 1.9 mg/dL (1.6-2.6) Total Bilirubin 0.3 mg/dL (0.2-1.0) Aspartate Amino Transferase (AST) 17 U/L (13-40) Alanine Aminotransferase (ALT) 13 U/L (7-40) Alkaline Phosphatase 62 U/L (46-116) Total Protein 6.4 g/dL (5.7-8.2) Albumin 3.8 g/dL (3.2-4.8) Prothrombin Time 10.6 sec (9.3-11.8) Prothrombin Time INR 1.00 (0.9-1.15) Activated Partial Thromboplast Time 26.5 SEC (24.5-34.5) Hemoglobin A1c 7.2 % A1C (<5.7) Troponin I High Sensitivity 10 ng/L (</=34) B-Type Natriuretic Peptide 116.88 pg/mL (0-100) Triglycerides Level 135 mg/dL (< 150) Cholesterol Level 125 mg/dL (< 200) LDL Cholesterol 57 mg/dL (< 100) HDL Cholesterol 44 mg/dL (40-59) Thyroid Stimulating Hormone (TSH) 4.07 uIU/mL (0.55-4.78) Other Laboratory Tests 08/15/25 05:12 Brief Hx & Hospital Course: Final diagnoses: STEMI s/p RCA stent PCI and left main PCI CAD Diabetes mellitus Hypotension obesity Mixed hyperlipidemia Old CVA She was found with STEMI that required PCI to RCA and left main arteries in 2 stages She is doing well now No chest pain Vital signs are normal Continue Aspirin and Plavix Lipitor Lisinopril Amlodipine F/U with PCP and cardiology S[facility] Condition at Discharge: Fair Final Diagnosis/Problems List STEMI s/p RCA stent PCI and left main PCI CAD Diabetes mellitus Hypotension obesity Mixed hyperlipidemia Old CVA Discharge Disposition: Home SNF Discharge Will this Physician continue t: No Discharge Instruct/Medications Diet: Cardiac 2g Na,low cholest Activity: No Restrictions, As Tolerated Follow Up/Referral: Dr. Alona GRAHAM Medications: ASA 81 mg qd Plavix 75 mg qd Lisinopril 40 mg qd Amlodipine 10 mg qd Atorvastatin 40 mg qhs Scheduled Hydroxyzine Hcl (Hydroxyzine Hcl), 1 TAB PO DAILY, (Reported) Miscellaneous Medications Sertraline Hcl (Sertraline Hcl), 25, (Reported) Discharge Statement: "Patient was advised to return to the ER or call 911 if any headaches, dizziness, shortness of breath, chest pain, abdominal pain, bleeding, fevers, or worsening of medical condition. Patient was counseled about treatment plan, medications, possible side effects, patientverbalized understanding. All questions were answered to the best of my ability. This discharge took greater then 30 minutes in planning, reviewing documentation, counseling the patient, and discussing with other team members." ASSESSMENT ASSESSMENT Assessment Successful PTCA stenting and intravascular ultrasound evaluation of theleft main Date of Service: Aug 15, 2025 Billing Provider: BELL MCGARRY MD Common Visit Codes: NOT BILLABLE BELL MCGARRY MD Aug 15, 2025 14:51
[2025-08-15] MEDS ORDERED: LISI40TA16 PO (14:59)
[2025-08-15] MEDS ORDERED: ASPI-378 PO (14:59)
[2025-08-15] MEDS ORDERED: FERR1TAB36 PO (14:59)
[2025-08-15] MEDS ORDERED: GLIP10TA9 PO (14:59)
[2025-08-15] MEDS ORDERED: AMLO1TAB23 PO (14:59)
[2025-08-15] MEDS ORDERED: FAMO-68 PO (14:59)
[2025-08-15] MEDS ORDERED: CLOP75TA70 PO (14:59)
[2025-08-15] MEDS ORDERED: ATOR40TA52 PO (14:59)
[2025-08-16] MEDS ORDERED: LISINOPRIL 5 MG TAB PO SCH (10:00)
== END 2025-08-15 18:50 | disposition home or self-care (01) | DRG 321 ==
LOC: ER 15:30 → EDBD 15:30 → OVERFLOW 15:55 → ICU WEST 17:21 → TELE-CENTR 08-09 14:33
PROVIDERS: ADMIT Internal Medicine Geriatric Medicine; ATTEND Internal Medicine Geriatric Medicine
PROC: 027034Z Dilation of Coronary Artery, One Artery with Drug-eluting Intraluminal Device, Percutaneous Approach (ICD-10-PCS; principal; 2025-08-08)
PROC: 4A023N7 Measurement of Cardiac Sampling and Pressure, Left Heart, Percutaneous Approach (ICD-10-PCS; 2025-08-08)
PROC: B211YZZ Fluoroscopy of Multiple Coronary Arteries using Other Contrast (ICD-10-PCS; 2025-08-08)
PROC: B215YZZ Fluoroscopy of Left Heart using Other Contrast (ICD-10-PCS; 2025-08-08)
PROC: 027034Z Dilation of Coronary Artery, One Artery with Drug-eluting Intraluminal Device, Percutaneous Approach (ICD-10-PCS; 2025-08-14)
PROC: B240ZZ3 Ultrasonography of Single Coronary Artery, Intravascular (ICD-10-PCS; 2025-08-14)
PROC: B211YZZ Fluoroscopy of Multiple Coronary Arteries using Other Contrast (ICD-10-PCS; 2025-08-14)
DX: I21.19 ST elevation (STEMI) myocardial infarction involving other coronary artery of inferior wall (principal); R57.0 Cardiogenic shock; D50.9 Iron deficiency anemia, unspecified; E11.9 Type 2 diabetes mellitus without complications; E66.9 Obesity, unspecified; I10 Essential (primary) hypertension; I65.21 Occlusion and stenosis of right carotid artery; E78.2 Mixed hyperlipidemia; I95.9 Hypotension, unspecified; I25.10 Atherosclerotic heart disease of native coronary artery without angina pectoris; Z88.5 Allergy status to narcotic agent; Z90.710 Acquired absence of both cervix and uterus; Z95.5 Presence of coronary angioplasty implant and graft; Z86.73 Personal history of transient ischemic attack (TIA), and cerebral infarction without residual deficits; Z79.84 Long term (current) use of oral hypoglycemic drugs; Z68.25 Body mass index [BMI] 25.0-25.9, adult
CPT/HCPCS: 36415; 71045; 80048; 80053; 80061; 82962; 83036; 83735; 83880; 84443; 84484; 85025; 85610; 85730; 86850; 86900; 86901; 87081; 92941; 92978; 93005; 93306; 93454; 93458; 99152; 99291; G0378; J1815; J2250; J2405; Q9967